=== PATIENT | female | born 1945 | race Caucasian/White ===

== ENCOUNTER 2019-09-16 20:35 | Emergency (ER) | payer MEDICARE, OTHER ==
[~2019-09-16] VITALS: Ht 167.6 cm; Wt 72.7 kg
[2019-09-16] MEDS ORDERED: adenosine 3mg/ml 2ml vial IV ONE (20:55)
--- NOTE | 2019-09-16 21:00 | NUR ---
ASSISTED CAYDENCHETISH WITH VAGAL MANUEVER WITH PT BLOWING HARD THROUGH SYRINGE WHILE HEAD LOWERED AND LEGS RAISED. ATTEMPTED 2 TIMES WITH LITTLE EFFECT. EDMD BRANT NOTIFIED.
[2019-09-16] MEDS ORDERED: etomidate 2mg/ml inj. IV ONE (21:10)
[2019-09-16] MEDS ORDERED: normal saline 1000ML IV soln IVB ONE (21:10)
[2019-09-16 21:33] LABS: BASOPHILS # (AUTO) 0.1 X10'3 (0-0.2); BASOPHILS % (AUTO) 0.6 % (0-1); EOSINOPHILS # (AUTO) 0.1 X10'3 (0-0.9); EOSINOPHILS % (AUTO) 1.5 % (0-6); HEMOGLOBIN 16.7 g/dl (12.0-16.0); LYMPHOCYTES % (AUTO) 34.8 % (21-51); MEAN CORPUSCULAR HEMOGLOBIN 31.7 PG (27.0-31.0); MEAN CORPUSCULAR HGB CONC 35.5 g/dL (33.0-36.5); MEAN CORPUSCULAR VOLUME 89.2 FL (78-98); MEAN PLATELET VOLUME 7.9 FL (7.4-10.4); MONOCYTES # (AUTO) 0.9 X10'3 (0-0.9); MONOCYTES % (AUTO) 9.9 % (2-12); NEUTROPHILS # (AUTO) 4.6 X10'3 (1.8-7.7); NEUTROPHILS % (AUTO) 53.2 % (42-75); PLATELET COUNT 214 X10'3 (140-440); RED BLOOD COUNT 5.27 X10'6 (4.20-5.60); RED CELL DISTRIBUTION WIDTH 12.8 % (11.5-14.5); WHITE BLOOD COUNT 8.7 X10'3 (4.5-11.0)
[2019-09-16] MEDS ORDERED: METO-539 PO (22:37)
[2019-09-16 22:48] LABS: ALBUMIN 3.9 G/DL (3.4-5.0); ALBUMIN/GLOBULIN RATIO 1.1 (1.1-1.5); ANION GAP 14 (8-16); ASPARTATE AMINO TRANSFERASE 23 U/L (10-37); BILIRUBIN,TOTAL 0.3 MG/DL (0.1-1.0); BLOOD UREA NITROGEN 10 MG/DL (7-18); BUN/CREATININE RATIO 11.2 (6.6-38.0); CALCIUM 9.3 MG/DL (8.5-10.1); CHLORIDE 103 MMOL/L (99-107); CREATININE 0.89 MG/DL (0.40-0.90); GLUCOSE 161 MG/DL (70-104); SODIUM 142 MMOL/L (135-145); TOTAL CARBON DIOXIDE 25.3 MMOL/L (24-32); TOTAL PROTEIN 7.5 G/DL (6.4-8.2); eGFR 63 ML/MIN
[2019-09-16 22:49] LABS: ALANINE AMINOTRANSFERASE 50 U/L (12-78); ALKALINE PHOSPHATASE 72 IU/L (46-116)
[2019-09-16 22:54] LABS: POTASSIUM 2.9 MMOL/L (3.5-5.1)
--- NOTE | 2019-09-16 22:54 | NUR ---
CONNOR CALLED FROM LAB: K 2.9 INFORMED THEA AND [place] CONTE
[2019-09-16] MEDS ORDERED: potassium Cl 20 mEq SR tablet PO STA (23:22)
[2019-09-16] MEDS ORDERED: POTA20TA19 PO (23:24)
[2019-09-16 23:54] VITALS: BP 124/65
== END 2019-09-16 23:59 | disposition home or self-care (01) ==
LOC: ER 20:36
DX: I48.20 Chronic atrial fibrillation, unspecified (principal); I10 Essential (primary) hypertension; Z79.899 Other long term (current) drug therapy
CPT/HCPCS: 36415; 71045; 80053; 83735; 83880; 84484; 85025; 93005; 96374; 99284; J0153; J7040